=== PATIENT | female | born 1990 | race Caucasian/White ===

== ENCOUNTER 2023-05-18 03:30 | Inpatient (IN) ==
[2023-05-18] MEDS: LACTATED RINGER'S 1,000 ML IV PRN (05:24)
[2023-05-18] MEDS: PENICILLIN GK 6 MU in DEXTROSE 5% 250 ML IV STA (05:24)
[2023-05-18] MEDS: OXYTOCIN 30 UNITS/NSS 30 UNITS/500 ML BAG IV PRN (05:28)
[2023-05-18 05:34] LABS: Hematocrit (blood only) 36.9 % (37.0-47.0); Hemoglobin 11.9 g/dl (12.0-16.0); Mean Corpuscular Hgb Conc 32.2 g/dL (32.0-36.0); Mean Corpuscular Volume 89.8 fL (80.0-100.0); Mean Platelet Volume 9.9 fL (9.4-12.4); Platelet Count 249 K/uL (130-400); RDW Coefficient of Variation 13.9 % (11.5-14.5); RDW Standard Deviation 44.8 fL (36.4-46.3); Red Blood Count 4.11 M/uL (4.20-5.40); White Blood Count 14.29 K/ul (4.8-10.8)
[2023-05-18] MEDS: PENICILLIN GK 3 MU in DEXTROSE 5% 100 ML IV PRN (09:23)
[2023-05-18] MEDS ORDERED: ONDANSETRON INJ 2 MG/ML 2 ML VIAL IV PRN ×2 (09:30→11:07)
[2023-05-18] MEDS: ONDANSETRON INJ 2 MG/ML 2 ML VIAL ONE (09:35)
--- NOTE | 2023-05-18 10:24 | Anesthesiology Consultation ---
Date of Service May 18, 2023 Assessment & Plan Chart Review Chart Review: Acceptable Risk for Surgery, Patient NOT seen in Pre Admission Testing and Acceptable Risk for Labor Epidural Consults Requested none ASA ASA2 Proposed Anesthesia Anesthesia Type: Labor Epidural and CSE History Height/Weight Height: 5 ft 6 in Weight: 94.438 kg Allergies Allergy/AdvReac Type Severity Reaction Status Date / Time Sulfa (Sulfonamide Allergy Unknown Rash Verified 05/18/23 04:41 Antibiotics) Medications Home Medications Medication Instructions Recorded Confirmed Last Taken cetirizine [Zyrtec] PO PRN allergies 10/18/22 05/15/23 Unknown tlcczojz-rrw-Of-FA PO 10/18/22 05/15/23 Unknown [] triamcinolone acetonide topical PRN atopic dermatitis 10/18/22 05/15/23 Unknown ondansetron HCl 4 mg tablet 4 mg PO Q6H PRN nausea and 01/08/23 05/18/23 Unknown vomiting #20 tabs hydroxyzine HCl 25 mg tablet 25 mg PO BID PRN other 03/24/23 05/15/23 Unknown RSV vac, preF A and preF B(PF) 120 0.5 ml IM ONCE #1 ea 04/11/23 05/15/23 Unknown mcg/0.5 mL IM solution (Abrysvo) breast pump #1 ea 05/09/23 05/15/23 Unknown Active Medications Generic Name Dose Route Start Last Admin Trade Name Freq PRN Reason Stop Dose Admin Oxytocin 30 units in 500 mls @ 18 mls/hr 05/18/23 04:37 05/18/23 10:00 Pitocin 30 Units/Nss IV 05/20/23 04:36 1.08 units/hr .Q24H PRN 18 mls/hr Labor Induction/Augmentation Titration Protocol 1.08 UNITS/HR Lactated Ringer's 1,000 mls @ 125 mls/hr 05/18/23 04:37 05/18/23 09:59 Lr IV 05/20/23 04:36 999 mls/hr .Q8H PRN Infusion L&D Protocol Protocol Penicillin G Potassium 3 mu/ 106 mls @ 100 mls/hr 05/18/23 07:37 05/18/23 09:23 Dextrose IV 05/28/23 07:36 100 mls/hr Q4H PRN Administration GBS(+) Until Delivery Past Medical History Medical History Atopic dermatitis Chronic idiopathic urticaria Hives Environmental and seasonal allergies Varicella vaccination obese Exercise / Class Metabolic Activity II 4-5 Yardwork/Stairs/Walk up hill Past Family History Family History Grandfather (Paternal) Colorectal cancer Mother Diabetes PIH ( induced hypertension) CHF (congestive heart failure) during Father Diabetes Denies family history of Ovarian cancer Breast cancer Past Surgical History Surgical History Status post surgery dental implants S/P wisdom tooth extraction S/P tonsillectomy and adenoidectomy Past Anesthesia History No Hx of Anesthesia Complications and No Family Hx of Anesthesia Complications History of PONV No Hx of PONV and No Hx of Motion Sickness Social History Smoking Status: Never smoker Do You Dip or Chew Tobacco: No Hx Alcohol Use: No Hx Substance Use: No substance use type: does not use Physical Exam Vital Signs Last Vital Signs Temp 36.8 C 05/18/23 10:01 Pulse 71 05/18/23 10:01 Resp 18 05/18/23 10:01 BP 120/68 05/18/23 10:01 Testing Laboratory Results 05/18/23 05:06
[2023-05-18] MEDS: BUPIVACAINE 0.25% PF 30 ML VIAL ONE (11:04)
[2023-05-18] MEDS: LIDOCAINE 2%/EPINEPHRINE 1:200,000 20 ML PF ONE (11:04)
[2023-05-18] MEDS: fentaNYL citrate PF 100 MCG/2 ML VIAL ONE (11:04)
[2023-05-18] MEDS ORDERED: ROPIVACAINE 0.5% PF 5 MG/ML 20 ML VIAL EPI PRN (11:07)
[2023-05-18] MEDS ORDERED: NALBUPHINE HCL 5 MG in SYRINGE 0 ML IV PRN (11:07)
[2023-05-18] MEDS ORDERED: ePHEDrine sulfate 50 MG/ML AMP IV PRN (11:07)
[2023-05-18] MEDS ORDERED: PROMETHAZINE HCL 6.25 MG in SODIUM CHLORIDE 0.9% 50 ML IV PRN (11:07)
[2023-05-18] MEDS ORDERED: LIDOCAINE 2% MPF LOCAL 5 ML VIAL EPI PRN (11:07)
[2023-05-18] MEDS ORDERED: NALOXONE HCL 0.4 MG/1 ML VIAL/CARP IV PRN (11:07)
[2023-05-18] MEDS ORDERED: diphenhydrAMINE 50 MG/ML VIAL IV PRN (11:07)
[2023-05-18] MEDS ORDERED: NALOXONE HCL 1 MG in SODIUM CHLORIDE 0.9% 1,000 ML IV PRN (11:07)
[2023-05-18] MEDS: fentANYL 2 MCG/ML BUPIVacaine 0.125%-NSS 100ML BAG ONE (11:09)
--- NOTE | 2023-05-18 11:13 | History & Physical Report ---
Date of Service May 18, 2023 Assessment & Plan (1) Supervision of normal first : Plan: Yareli is a 32-year-old G1, P0 currently at 36 weeks 6 days gestational age presents with rupture of membranes 1. Fetus: Category 1 tracing 2. Labor confirmed premature rupture of membranes not in labor. Will start oxytocin per regular protocol. 3. GBS positive will start penicillin 4. Vitals within normal limits (2) Carrier of group B Streptococcus: (3) PROM (premature rupture of membranes): Admission and Anticipated Discharge Date Admission Date: May 18, 2023 History of Present Illness Primary Care Provider: Harika Munoz MD Yareli is a 32-year-old currently at 36 weeks 6 days gestational age presents with leakage of fluid. Denying any contractions, vaginal bleeding. Reporting good movement. Idiopathic urticaria Severe worsening during despite steroid and hydroxyzine; confluent rash on 80-90% of face @ 24wk, other areas affected but less so Referred to Allergy and Immunology at [facility] for second opinion; has sports book server in [place] -No additional recs GBS Positive urine OB Labs: Hemoglobin 12.5 g/dl (12.0-16.0) 03/24/23 Hematocrit 38.0 % (37.0-47.0) 03/24/23 Platelet Count 338 K/uL (130.0-400.0) 10/31/22 Glucose 1 Hour 50 gm Load 127 mg/dl (70-130) 03/24/23 Maternal Serum Alpha Fetoprotein 24.5 ng/mL 12/19/22 OB Optional Labs: Chlamydia trachomatis RNA Not Detected (NotDetected) 10/25/22 Neisseria gonorrhoeae RNA Not Detected (NotDetected) 10/25/22 Thyroid Stimulating Hormone (TSH) 0.855 uIu/ml (0.300-4.500) 03/24/23 Alpha Fetoprotein Triple Screen SEE NOTE 12/19/22 Labs Reviewed: Initial OB Labs Blood Type & RH O positivie Antibody ScreenNegative HCT/HGB42.1/14.2 [id number] Hep C IgG 13yrs+ OldNot Detected RubellaNon Reactive RPRNon Reactive HBsAgNon Reactive HIVNon Reactive MCV87.3 Horizon 14-negative--mln cfdna-low risk--mln Allergies Allergy/AdvReac Type Severity Reaction Status Date / Time Sulfa (Sulfonamide Allergy Unknown Rash Verified 05/18/23 04:41 Antibiotics) Home Medications Medication Instructions Recorded Confirmed Type cetirizine [Zyrtec] PO PRN allergies 10/18/22 05/15/23 History dnkspklz-eue-Gm-FA PO 10/18/22 05/15/23 History [] triamcinolone acetonide topical PRN atopic dermatitis 10/18/22 05/15/23 History ondansetron HCl 4 mg tablet 4 mg PO Q6H PRN nausea and 01/08/23 05/18/23 Rx vomiting #20 tabs hydroxyzine HCl 25 mg tablet 25 mg PO BID PRN other 03/24/23 05/15/23 History RSV vac, preF A and preF B(PF) 120 0.5 ml IM ONCE #1 ea 04/11/23 05/15/23 Rx mcg/0.5 mL IM solution (Abrysvo) breast pump #1 ea 05/09/23 05/15/23 Rx Patient History Medical History Atopic dermatitis Chronic idiopathic urticaria Hives Environmental and seasonal allergies Varicella vaccination Surgical History Status post surgery dental implants S/P wisdom tooth extraction S/P tonsillectomy and adenoidectomy Family History Grandfather (Paternal) Colorectal cancer Mother Diabetes PIH ( induced hypertension) CHF (congestive heart failure) during Father Diabetes Denies family history of Ovarian cancer Breast cancer Social History Smoking Status: Never smoker Second Hand Exposure: No; Do You Dip or Chew Tobacco: No; Hx Alcohol Use: No Hx Substance Use: No Preferred Language: Romanian Communication Ability: Effective Correspondence Analyst Required: No Beliefs That Will Affect Care: None marital status: marital status details: Williams Hickey(31) [phone] Current Living Situation: Spouse Current Living Situation Comment: lives with spouse, dog current occupational status: employed current occupation: pharmacist [employer] Other Information That Helps Us Care for You: No Feels Safe at Home: Yes Safety Concerns: Feels Safe At This Time Assistive Devices: None Physical Exam Genitourinary: normal external appearance OB Exam Abdomen: + vertex Manual OB Exam: + cervical dilation 1 cm, + cervical effacement 10%, + station high and + amniotic fluid (Grossly ruptured on exam) clear OB Exam Monitor Tracing: + external FHT monitor used, + external uterine monitor used, + category I and + normal FHT variability; no early decelerations present, no late decelerations present and no variable decelerations Results & Data Vital Signs (Past 12 Hours) Vital Signs Temp Pulse Resp BP 05/18/23 10:01 71 120/68 05/18/23 09:07 18 05/18/23 09:07 36.9 C 18 05/18/23 09:00 81 114/69 05/18/23 08:00 36.7 C 75 18 122/77 05/18/23 07:00 36.7 C 16 05/18/23 07:00 36.7 C 64 16 126/72 05/18/23 06:39 65 131/84 05/18/23 06:00 36.8 C 05/18/23 05:31 63 126/72 05/18/23 03:54 36.6 C 77 20 142/84 H 05/18/23 03:47 77 142/84 H Coding Level of Care Code None Diagnoses Encounter for supervision of normal first in third trimester Z34.03 Trimester: third trimester Carrier of group B Streptococcus Z22.330 premature rupture of membranes in third trimester, unspecified duration to onset of labor O42.913 PROM onset of labor timing: unspecified duration between rupture of membranes and onset of labor PROM gestational age: -third trimester (1) Supervision of normal first Trimester: third trimester Qualified Code(s): Z34.03 - Encounter for supervision of normal first , third trimester (3) PROM (premature rupture of membranes) PROM onset of labor timing: unspecified duration between rupture of membranes and onset of labor PROM gestational age: -third trimester Qualified Code(s): O42.913 - premature rupture of membranes, unspecified as to length of time between rupture and onset of labor, third trimester
--- NOTE | 2023-05-18 11:14 | Labor Progress Brief Note ---
Date of Service May 18, 2023 Subjective Reason For Note: Routine Evaluation Assessment & Plan (1) Supervision of normal first : Plan: Yareli is a 32-year-old G1, P0 currently at 36 weeks 6 days gestational age presents with rupture of membranes 1. Fetus: Category 1 tracing 2. Labor confirmed premature rupture of membranes not in labor. Will start oxytocin per regular protocol. Progressing well 3. GBS positive will start penicillin 4. Vitals within normal limits Trimester: third trimester Qualified Code(s): Z34.03 - Encounter for supervision of normal first , third trimester (2) Carrier of group B Streptococcus: (3) PROM (premature rupture of membranes): PROM onset of labor timing: unspecified duration between rupture of membranes and onset of labor PROM gestational age: -third trimester Qualified Code(s): O42.913 - premature rupture of membranes, unspecified as to length of time between rupture and onset of labor, third trimester Admission and Anticipated Discharge Date Admission Date: May 18, 2023 Physical Exam Genitourinary: Manual OB Exam: + cervical dilation 3 cm, + cervical effacement 80%, + station -2 and + amniotic fluid clear OB Exam Monitor Tracing: + external FHT monitor used, + external uterine monitor used, + category I and + normal FHT variability; no early decelerations present, no late decelerations present and no variable decelerations Results & Data Vital Signs (Past 12 Hours) Vital Signs Temp Pulse Resp BP 05/18/23 10:01 71 120/68 05/18/23 09:07 18 05/18/23 09:07 36.9 C 18 05/18/23 09:00 81 114/69 05/18/23 08:00 36.7 C 75 18 122/77 05/18/23 07:00 36.7 C 16 05/18/23 07:00 36.7 C 64 16 126/72 05/18/23 06:39 65 131/84 05/18/23 06:00 36.8 C 05/18/23 05:31 63 126/72 05/18/23 03:54 36.6 C 77 20 142/84 H 05/18/23 03:47 77 142/84 H Coding Level of Care Code None Diagnoses Encounter for supervision of normal first in third trimester Z34.03 Trimester: third trimester Carrier of group B Streptococcus Z22.330 premature rupture of membranes in third trimester, unspecified duration to onset of labor O42.913 PROM onset of labor timing: unspecified duration between rupture of membranes and onset of labor PROM gestational age: -third trimester
[2023-05-18] MEDS: SODIUM CHLORIDE 0.9% PF INJ 10 ML VIAL ONE (11:44)
[2023-05-18] MEDS: fentaNYL citrate PF 100 MCG/2 ML VIAL EPI STA (11:44)
[2023-05-18] MEDS: BUPIVACAINE 0.25% PF 30 ML VIAL EPI STA (11:44)
[2023-05-18] MEDS: LIDOCAINE 2%/EPINEPHRINE 1:200,000 20 ML PF EPI STA (11:44)
[2023-05-18] MEDS: SODIUM CHLORIDE 0.9% PF INJ 10 ML VIAL EPI STA (11:44)
[2023-05-18] MEDS ORDERED: NURSING L&D Epidural Breakthrough Pain Update ONE (14:40)
[2023-05-18] MEDS: fentaNYL citrate PF 100 MCG/2 ML VIAL EPI PRN (15:33)
[2023-05-18] MEDS: BUPIVACAINE 0.25% PF 30 ML VIAL EPI PRN (15:33)
[2023-05-18] MEDS: SODIUM CHLORIDE 0.9% PF INJ 10 ML VIAL EPI PRN (15:33)
--- NOTE | 2023-05-18 15:38 | Anesthesia Procedure Note ---
Date of Service May 18, 2023 Anesthesia Epidural Re-Dose Vital Signs Temp Pulse Resp BP Pulse Ox 36.7 C 86 16 122/78 99 05/18/23 12:55 05/18/23 15:35 05/18/23 12:55 05/18/23 15:35 05/18/23 15:34 Notes Pain Intensity: 6 Dilatation (cm): 7.5 Effacement (%): 90 Heart Rate: 130 After Epidural Re-Dose Mental Status: alert / awake / arousable and participated in evaluation Pain: see Notes below Airway Patency, RR, SpO2: stable & adequate BP & HR: stable & adequate Additional Notes: Pt c/0 pain 6/10. Epidural bolused w/ 12 ml 0.17% bupivacaine + 100 mcgs fentanyl;neg. asp. w/ incremental injections.
[2023-05-18] MEDS: fentANYL 2 MCG/ML BUPIVacaine 0.125%-NSS 100ML BAG EPI PRN (17:51)
--- NOTE | 2023-05-18 18:07 | Anesthesia Procedure Note ---
Date of Service May 18, 2023 Anesthesia Epidural Re-Dose Vital Signs Temp Pulse Resp BP Pulse Ox 37.6 C H 93 H 18 136/77 99 05/18/23 15:40 05/18/23 18:02 05/18/23 15:40 05/18/23 18:02 05/18/23 17:59 Notes Pain Intensity: 8 Dilatation (cm): 8 Effacement (%): 90 Heart Rate: 142 After Epidural Re-Dose Mental Status: alert / awake / arousable and participated in evaluation Pain: see Notes below Airway Patency, RR, SpO2: stable & adequate BP & HR: stable & adequate Additional Notes: @ 1801 Pt. epidural was bolused w/ 12 ml 0.17% bupivacaine + 100 mcgs fentanyl using incremental aspirations and injections w/o incident.
[2023-05-19] MEDS: ePHEDrine sulfate 50 MG/ML AMP ONE (00:06)
[2023-05-19] MEDS: OXYTOCIN 30 UNITS/NSS 30 UNITS/500 ML BAG IV PRN (00:15)
[2023-05-19] MEDS: LIDOCAINE 1% LOCAL 20 ML VIAL INFIL PRN (00:17)
--- NOTE | 2023-05-19 00:36 | Anesthesia Procedure Note ---
Date of Service May 19, 2023 Anesthesia Post Epidural Note Vital Signs Vital Signs: Temp Pulse Resp BP Pulse Ox 37.1 C 94 H 20 109/63 96 05/18/23 23:00 05/19/23 00:33 05/18/23 23:00 05/19/23 00:33 05/19/23 00:14 Pain Intensity Lower Abdomen: Pain Intensity: 2 Notes Mental Status: alert / awake / arousable Nausea / Vomiting: adequately controlled Pain: adequately controlled Airway Patency, RR, SpO2: stable & adequate BP & HR: stable & adequate Hydration State: stable & adequate Neuraxial Anesthesia: was administered and sensory block is resolving Anesthetic Complications: no major complications apparent and Pt Satisfied with anesthetic care Epidural: Removed without complications and With tip intact
[2023-05-19] MEDS ORDERED: HYDROCORTISONE ACETATE 25 MG SUPP PR PRN (01:01)
[2023-05-19] MEDS ORDERED: bisacodyL 10 MG SUPP PR PRN (01:01)
[2023-05-19] MEDS ORDERED: OXYTOCIN 30 UNITS/NSS 30 UNITS/500 ML BAG IV PRN (01:01)
--- NOTE | 2023-05-19 01:03 | Delivery Summary ---
Vaginal Delivery Summary Date of Service May 19, 2023 Vaginal Delivery Summary and 2nd Degree LAC Patient aggressive 10 cm dilated 100% effaced +2 station pushed and intact perineum with epidural anesthesia and delivered a viable with weight and Apgars pending. Had the delivered in JEANETTE position and transition to right transverse. No nuchal cord was noted. Body and shoulders quickly followed. was noted to be vigorous upon delivery and 1 minute delayed cord clamping was initiated. Cord was then double clamped and cut. Cord blood obtained. Attention was turned to delivery the placenta was delivered intact with three-vessel cord with gentle cord traction. On inspection of perineum vagina and cervix there is noted to be a second-degree perineal laceration lacerations repaired with 3-0 Vicryl with the traditional crown stitch. Needle sponge and instrument counts were correct at the completion of the case. Both mother and stable in the immediate postdelivery Period. Estimated blood loss 350 mL and no complications noted [facility] Vaginal Delivery Charge Delivery Type Details: and 2nd Degree LAC
[2023-05-19] MEDS: BENZOCAINE 20% SPRY 85 APPLN/85 GM CAN EXT PRN (02:28)
[2023-05-19] MEDS: IBUPROFEN 600 MG TAB PO PRN (02:28)
--- NOTE | 2023-05-19 07:40 | Obstetrical Progress Note ---
Date of Service May 19, 2023 Assessment & Plan (1) Encounter for care and examination after delivery: Day 1 status post vaginal delivery. Patient doing well. Routine care Subjective Ambulation: ambulating normally Voiding: no voiding problems Passing Gas:: Yes Diet Tolerance:: regular diet Lochia:: Moderate Feeding Type:: breast feeding Physical Exam Constitutional WD/WN, vitals as above Respiratory normal respiratory effort; no respiratory distress and no labored breathing Gastrointestinal (Abdomen) Inspection/Auscultation: abdomen normal to inspection; abdomen not distended Percussion/Palpation: abdomen soft; abdomen nontender, no guarding and abdomen not rigid Genitourinary OB Exam Abdomen: + fundal height Fundus: + firm and + relation to umbilicus (Below); not tender or not boggy Results & Data Vital Signs (Past 12 Hours) Vital Signs Temp Pulse Pulse Resp BP BP Pulse Ox 05/19/23 03:02 36.7 C 75 106/70 05/19/23 02:50 18 05/19/23 02:18 78 106/55 L 05/19/23 02:03 83 112/56 L 05/19/23 01:48 81 112/60 05/19/23 01:33 89 112/56 L 05/19/23 01:18 77 107/59 L 05/19/23 01:03 86 103/55 L 05/19/23 00:48 85 97/54 L 05/19/23 00:33 94 H 109/63 05/19/23 00:18 108 H 111/66 05/19/23 00:14 97 H 96 05/19/23 00:09 107 H 95 05/19/23 00:08 107 H 118/61 94 05/19/23 00:04 107 H 96 05/18/23 23:59 111 H 95 05/18/23 23:54 167 H 100 05/18/23 23:53 123 H 131/87 05/18/23 23:49 170 H 98 05/18/23 23:44 132 H 95 05/18/23 23:41 163 H 93 05/18/23 23:39 169 H 98 05/18/23 23:38 123 H 130/78 05/18/23 23:35 169 H 94 05/18/23 23:34 123 H 96 05/18/23 23:29 159 H 98 05/18/23 23:24 153 H 96 05/18/23 23:23 136 H 143/79 H 05/18/23 23:19 157 H 98 05/18/23 23:16 149 H 93 05/18/23 23:14 159 H 98 05/18/23 23:10 138 H 93 05/18/23 23:09 109 H 97 05/18/23 23:08 148 H 134/68 05/18/23 23:04 144 H 98 05/18/23 23:00 20 05/18/23 23:00 37.1 C 20 05/18/23 22:59 138 H 97 05/18/23 22:54 115 H 133/73 97 05/18/23 22:51 125 H 93 05/18/23 22:49 137 H 100 05/18/23 22:44 100 H 100 05/18/23 22:39 81 128/61 97 05/18/23 22:38 98 H 84 L 05/18/23 22:34 102 H 99 05/18/23 22:29 99 H 99 05/18/23 22:24 85 100 05/18/23 22:23 100 H 122/67 05/18/23 22:19 91 H 99 05/18/23 22:14 79 99 05/18/23 22:09 88 98 05/18/23 22:08 85 122/67 05/18/23 22:04 88 98 05/18/23 21:59 82 99 05/18/23 21:54 87 98 05/18/23 21:53 77 112/62 05/18/23 21:49 85 98 05/18/23 21:44 91 H 99 05/18/23 21:39 78 99 05/18/23 21:38 88 116/61 05/18/23 21:34 105 H 97 05/18/23 21:29 109 H 97 05/18/23 21:24 99 05/18/23 21:24 108 H 05/18/23 21:24 120 H 129/66 05/18/23 21:19 91 H 97 05/18/23 21:14 85 95 05/18/23 21:09 87 135/75 99 05/18/23 21:04 91 H 95 05/18/23 21:00 18 05/18/23 21:00 37.0 C 18 05/18/23 20:59 82 96 05/18/23 20:54 97 05/18/23 20:54 82 05/18/23 20:54 80 127/66 05/18/23 20:49 93 H 97 05/18/23 20:44 82 98 05/18/23 20:39 97 05/18/23 20:39 100 H 05/18/23 20:39 81 113/65 05/18/23 20:34 98 H 97 05/18/23 20:29 76 97 05/18/23 20:24 73 98 05/18/23 20:23 84 123/72 05/18/23 20:19 79 98 05/18/23 20:14 88 98 05/18/23 20:10 90 125/77 05/18/23 20:09 92 H 99 05/18/23 20:04 96 H 98 05/18/23 19:59 74 98 05/18/23 19:54 94 H 96 05/18/23 19:53 90 123/64 05/18/23 19:49 82 96 05/18/23 19:44 89 98
[2023-05-19] MEDS: ACETAMINOPHEN 325 MG TAB PO PRN (08:28)
[2023-05-19] MEDS: PRENATAL VITAMIN 1 TAB PO SCH (08:28)
[2023-05-19] MEDS: FERROUS SULFATE 325 MG TAB PO SCH (08:28)
[2023-05-19] MEDS: DOCUSATE SODIUM 100 MG CAP PO SCH (08:29)
--- NOTE | 2023-05-20 06:46 | Obstetrical Progress Note ---
Date of Service <Johnnie Kirby MD - Last Filed: 05/20/23 08:52> May 20, 2023 Assessment & Plan <Johnnie Kirby MD - Last Filed: 05/20/23 08:52> (1) Encounter for care and examination after delivery: (2) Urinary retention: Plan 32 yo , status post day 2 w/ 2nd degree laceration on 05/19/23 - Pt doing well clinically. Feels well today. Eating well, experiencing urinary retention and a Mon catheter inserted, ambulating well. Removal of Mon with voiding trial planned late this morning. Pain well controlled with PRN pain meds. - Pt has sig urinary retention, BMP ordered. - Routine care -- OOB, ambulation, diet progression as tolerated Vital Signs reviewed and WNL. (Tmax at 36.4) Hemoglobin Reviewed. 11.9 (05/17). Blood Type: O+, GBS+, Rubella Immune. Encourage ambulation, monitor and control pain with Motrin PRN, resume regular diet, monitor lochia. Breast feeding encouraged, currently bottle feeding while awaiting milk letdown. After discharge will have 6 week follow-up with Dr. Reyes. Pt likely to stay an additional day, secondary to urinary retention concerns. <Gabe Ruiz MD, FACOG - Last Filed: 05/20/23 08:55> (1) Encounter for care and examination after delivery: (2) Urinary retention: Subjective <Johnnie Kirby MD - Last Filed: 05/20/23 08:52> Ambulation: ambulating normally Voiding: mon catheter in place and voiding difficulty Passing Gas:: Yes Diet Tolerance:: regular diet Lochia:: Moderate Feeding Type:: bottle feeding (want to breast feed, waiting for letdown) Current Pain Level(1-10): 2 (when moving: laceration in vaginal area/low back pain) Constitutional: + sweats; no fever, no chills or no body aches Respiratory: no cough, no chest congestion or no dyspnea Cardiovascular: no chest pain or no palpitations Gastrointestinal: + cramping; no abdominal pain, no nausea, no vomiting or no diarrhea/loose stools Genitourinary (female): + difficulty urinating Physical Exam <Johnnie Kirby MD - Last Filed: 05/20/23 08:52> Constitutional WD/WN, vitals as above Respiratory normal respiratory effort, lungs clear to auscultation Cardiovascular Extremities: no calf tenderness Gastrointestinal (Abdomen) Inspection/Auscultation: abdomen normal to inspection and normal bowel sounds Percussion/Palpation: + abdomen tender (diffusely tender cramping pain) Skin + rash (erythematous, papular, pruritic rash over face, neck, upper chest) Results & Data <Johnnie Kirby MD - Last Filed: 05/20/23 08:52> Vital Signs (Past 12 Hours) Vital Signs Temp Pulse Resp BP Pulse Ox O2 Del Method 05/20/23 00:32 36.4 C L 64 18 110/72 96 Room Air 05/19/23 19:16 36.4 C L 66 18 104/68 96 Room Air Supervising Physician <Gabe Ruiz MD, FACOG - Last Filed: 05/20/23 08:55> Co-Signing Physician Notes Resident Physician Supervision Note: I was present with Dr. Heath during the history and exam. I discussed the case with the resident and agree with the findings and plan as documented in the note. Any exceptions or clarifications are listed here: [None] Documented By: Gabe Ruiz MD, FACOG
[2023-05-20] MEDS: CETIRIZINE HCL 10 MG TABLET PO SCH (09:02)
[2023-05-20 10:00] LABS: Calcium 7.9 mg/dl (8.6-10.3); Potassium 3.6 mmol/L (3.5-5.1)
[2023-05-20 10:06] LABS: BUN Creatinine Ratio 14.5 (10-20); Creatinine Clr Calc Pharmacy 173.2 ml/min; Est GFR (African American) 145.9 ml/min; Est GFR (Non-African American) 125.9 ml/min
[2023-05-20] MEDS: HYDROCORTISONE 2.5% CR 30 GM TUBE EXT PRN (11:46)
[2023-05-20] MEDS: DIPHTHER/TETAN/PERTUS Vaccine (Tdap, Adol/Adult) 0.5mL IM ONE (19:28)
[2023-05-20] MEDS: bisacodyL 5 MG TABEC PO SCH (20:24)
--- NOTE | 2023-05-21 05:43 | Obstetrical Progress Note ---
Date of Service <Johnnie Kirby MD - Last Filed: 05/21/23 07:41> May 21, 2023 Assessment & Plan <Johnnie Kirby MD - Last Filed: 05/21/23 07:41> (1) Encounter for care and examination after delivery: (2) Urinary retention: Plan 32 yo , status post day 3 w/ 2nd degree laceration on 05/19/23 - Pt doing well clinically. Feels well today. Eating well, Hinojosa removed and patient no longer experiencing urinary retention, voiding normally, ambulating well. Pain well controlled with PRN pain meds. - BMP yesterday did not indicate any electrolyte imbalance after urinary retention. - Routine care -- OOB, ambulation, diet progression as tolerated Vital Signs reviewed and WNL. (Tmax at 36.7) Hemoglobin Reviewed. 11.9 (05/17). Not experiencing any symptoms concerning for anemia. Blood Type: O+, GBS+, Rubella Immune. Encourage ambulation, monitor and control pain with Motrin PRN, resume regular diet, monitor lochia. Breast feeding encouraged, currently bottle feeding while awaiting milk letdown. After discharge will have 6 week follow-up with Dr. Reyes. Pt will be discharged today; discharge instructions gone over with her. <Siria Carrizales MD - Last Filed: 05/21/23 08:12> (1) Encounter for care and examination after delivery: (2) Urinary retention: Subjective <Johnnie Kirby MD - Last Filed: 05/21/23 07:41> Ambulation: ambulating normally Voiding: no voiding problems (Hinojosa removed; patient voiding normally again) Passing Gas:: Yes Diet Tolerance:: regular diet Lochia:: Small Feeding Type:: breast feeding Current Pain Level(1-10): 2 (soreness and exacerbation when moving around) Constitutional: + sweats; no fever, no chills or no body aches Respiratory: no cough, no chest congestion or no dyspnea Cardiovascular: no chest pain or no palpitations Gastrointestinal: + cramping; no abdominal pain, no nausea, no vomiting or no diarrhea/loose stools Genitourinary (female): no dysuria, no difficulty urinating or no urinary urgency Physical Exam <Johnnie Kirby MD - Last Filed: 05/21/23 07:41> Constitutional WD/WN, vitals as above Respiratory normal respiratory effort, lungs clear to auscultation Cardiovascular Extremities: no calf tenderness Gastrointestinal (Abdomen) Inspection/Auscultation: abdomen normal to inspection and normal bowel sounds Percussion/Palpation: + abdomen tender (diffusely tender cramping pain) Skin + rash (erythematous, papular, pruritic rash over face, neck, upper chest) Psychiatric A+Ox3, euthymic affect Results & Data <Johnnie Kirby MD - Last Filed: 05/21/23 07:41> Vital Signs (Past 12 Hours) Vital Signs Temp Pulse Resp BP Pulse Ox O2 Del Method 05/20/23 23:45 36.5 C 65 18 109/72 95 Room Air 05/20/23 20:00 36.6 C 66 18 119/78 96 Room Air Supervising Physician <Siria Carrizales MD - Last Filed: 05/21/23 08:12> Co-Signing Physician Notes Resident Physician Supervision Note: I interviewed and examined the patient. Discussed with Dr. Kirby and agree with findings and plan as documented in the note. Any exceptions or clarifications are listed here: PP3 s/p , doing well. Voiding well. VSS, exam benign and wnl. DC home Documented By: Siria Carrizales MD
== END 2023-05-21 16:15 | disposition home or self-care (01) | DRG 807 ==
LOC: OPB 03:30 → 4S1 03:37 → 4E2 05-19 02:47